=== PATIENT | female | born 1990 | race Hispanic/Latino ===

== ENCOUNTER 2018-07-18 06:00 | Inpatient (IN) | payer BC, MEDICAID ==
[2018-07-18] MEDS ORDERED: Misoprostol 200 MCG TAB PR PRN (07:04)
[2018-07-18] MEDS ORDERED: Methylergonovine 0.2 MG/ML VIAL IM PRN (07:04)
[2018-07-18] MEDS ORDERED: Diphenoxylate HCl/Atropine Tablet PO PRN ×2 (07:04)
[2018-07-18] MEDS ORDERED: Docusate 100 MG CAP PO PRN (07:04)
[2018-07-18] MEDS ORDERED: Lidocaine 1% (PF) 30 ML VIAL SC PRN (07:04)
[2018-07-18] MEDS ORDERED: HYDROcodone/Acetaminophen 5/325 mg Tablet PO PRN ×4 (07:04→17:26)
[2018-07-18] MEDS ORDERED: Butorphanol Tartrate 1 MG/ML VIAL SLOW IVP PRN (07:04)
[2018-07-18] MEDS ORDERED: Promethazine HCl 25 MG/ML VIAL IM PRN ×3 (07:04→17:26)
[2018-07-18] MEDS ORDERED: Ondansetron PF 4 MG/2 ML Vial IVP PRN ×3 (07:04→17:26)
[2018-07-18] MEDS ORDERED: Carboprost 250 MCG/ML AMP IM PRN (07:04)
[2018-07-18] MEDS ORDERED: NS w/ Oxytocin 10 units 500 ML IV SCH ×2 (07:15)
[2018-07-18 07:32] VITALS: BMI 32.8
[2018-07-18] MEDS: Lactated Ringer's 1,000 ML IV SCH ×2 (07:48→10:14)
[2018-07-18 08:15] LABS: Hemoglobin 10.3 g/dL (12.0-16.0); Mean Corpuscular HGB CONC 32.3 g/dL (32.0-36.0); Mean Corpuscular Hemoglobin 23.5 pg (27.0-31.0); Mean Corpuscular Volume 72.8 fL (78.0-98.0); Mean Platelet Volume 8.9 fL (7.4-10.4); Platelet Count 262 thou/uL (130-400); RBC Distribution Width 15.2 % (11.5-14.5); Red Blood Cell (RBC) Count 4.37 mill/uL (4.20-5.40); White Blood Cell (WBC) Count 7.1 thou/uL (4.8-10.8)
[2018-07-18 08:54] LABS: HBSAg Index 0.27 S/CO (0-0.99); Hep B Surf Ag Non-Reactive S/CO (NonReactive); Syphilis Antibody Nonreactive (Nonreactive); Syphilis Antibody Index 0.02 S/CO (<1.00 Non-Reactive)
[2018-07-18] MEDS ORDERED: Fentanyl 4 mcg/Bup 0.1% Cadd 100 ML ONE (09:37)
[2018-07-18] MEDS ORDERED: Lidocaine 1.5%/Epinephrine 1:200,000 5 ML AMPUL IJ ONE (10:19)
[2018-07-18] MEDS ORDERED: Acetaminophen 325 MG TAB PO PRN (10:52)
[2018-07-18] MEDS ORDERED: Lactated Ringer's 500 ML IV PRN (10:52)
[2018-07-18] MEDS ORDERED: Naloxone HCl 0.4 mg/ml Vial IVP PRN ×2 (10:52)
[2018-07-18] MEDS ORDERED: ePHEDrine/0.9% NaCl/PF SYRINGE 50 mg/10 ml SLOW IVP PRN (10:52)
[2018-07-18] MEDS ORDERED: diphenhydrAMINE 50 MG/ML VIAL IVP PRN (10:52)
[2018-07-18] MEDS ORDERED: Eucerin (Mineral Oil/Petrolatum,White) 30 gm Jar TOP PRN (10:52)
[2018-07-18] MEDS ORDERED: Fentanyl 4 mcg/Bupivacaine 0.1% Cassette 100 ML EPIDURAL SCH (11:00)
[2018-07-18] MEDS ORDERED: Communication Order-Pharmacy FS SCH (11:00)
[2018-07-18] MEDS: NS / Oxytocin 40 units/1000ml 1,000 ML IV PRN ×2 (14:35→16:00)
[2018-07-18] MEDS ORDERED: Zolpidem Tartrate 5 MG TAB PO PRN (17:26)
[2018-07-18] MEDS ORDERED: diphenhydrAMINE 25 MG CAP PO PRN (17:26)
[2018-07-18] MEDS ORDERED: Lanolin Ointment 7 GM TUBE TOP PRN (17:26)
[2018-07-18] MEDS ORDERED: NS / Oxytocin 40 units/1000ml 1,000 ML IV SCH (17:26)
[2018-07-18] MEDS ORDERED: Bisacodyl 10 MG SUPP PR PRN (17:26)
[2018-07-18] MEDS ORDERED: Milk Of Magnesia 30 ML UDCUP PO PRN (17:26)
[2018-07-18] MEDS: Ibuprofen 800 MG TAB PO SCH (19:59)
[2018-07-18] MEDS: Docusate Calcium (SURFAK) 240 MG CAP PO SCH (19:59)
[2018-07-19] MEDS: Ibuprofen 800 MG TAB PO SCH ×2 (05:33→14:35)
[2018-07-19] MEDS: Ferrous Sulfate 325 MG TAB PO SCH ×2 (08:00→16:44)
[2018-07-19] MEDS ORDERED: Measles/Mumps/Rubella 10 MCG/0.5 ML VIAL SC ONE (09:00)
[2018-07-19] MEDS ORDERED: Adacel (T-DAP) 0.5 ML SYRINGE IM ONE (09:00)
[2018-07-19] MEDS ORDERED: Varicella virus, LIVE 0.5 ML VIAL SC ONE (09:00)
[2018-07-19] MEDS ORDERED: Prenatal Vitamin 1 TAB PO SCH (09:00)
[2018-07-19] MEDS: Docusate Calcium (SURFAK) 240 MG CAP PO SCH (09:10)
[2018-07-19 09:13] LABS: Hemoglobin 9.6 g/dL (12.0-16.0); Mean Corpuscular HGB CONC 31.8 g/dL (32.0-36.0); Mean Corpuscular Hemoglobin 23.2 pg (27.0-31.0); Mean Corpuscular Volume 73.1 fL (78.0-98.0); Mean Platelet Volume 8.5 fL (7.4-10.4); Platelet Count 247 thou/uL (130-400); RBC Distribution Width 14.9 % (11.5-14.5); Red Blood Cell (RBC) Count 4.14 mill/uL (4.20-5.40); White Blood Cell (WBC) Count 10.1 thou/uL (4.8-10.8)
[2018-07-19] MEDS ORDERED: Bupivacaine/Epinephrine 0.25% 30 ML VIAL ONE (10:03)
[2018-07-19 16:09] VITALS: BP 128/72; TEMP 98.5
--- NOTE | 2018-07-19 16:54 | PDOC.PP ---
Post Progress Note Post Day #: 1 PO intake tolerated: yes Flatus: yes Ambulation: yes Vital Signs (12 hours) Temp Pulse Resp BP BP Pulse Ox 07/19/18 15:52 98.5 F 95 18 128/72 07/19/18 11:31 98.1 F 91 20 137/60 07/19/18 07:57 98.4 F 79 16 107/55 L 99 07/19/18 05:31 98.0 F 80 18 109/65 97 Weight Weight 174 lb - Physical Examination General: NAD Cardiovascular: no m/r/g, RRR Respiratory: clear to auscultation bilaterally Abdominal: + bowel sounds, lochia, no distention Extremities: negative homans (B) Neurological: no gross focal deficits (DC to home) Result Diagrams: 07/19/18 09:04 Additional Labs: Post Labs Blood Type A POSITIVE 07/18/18 07:53 Hep Bs Antigen Non-Reactive S/CO (NonReactive) 07/18/18 07:53
--- NOTE | 2018-07-19 16:56 | PDOC.LDHP ---
Labor and Delivery H&P Chief complaint: contractions HPI: 28 y/o at 39 weeks 0 days for term induction of labor. Current gestational age (weeks): 39 Due date: 07/25/18 Grav: 2 Para: 1 Current complications: none Abnormal US findings: No Current medications: pre-barber vitamins Allergies/Adverse Reactions: Allergies Allergy/AdvReac Type Severity Reaction Status Date / Time No Known Allergies Allergy Verified 07/18/18 06:41 - Physical Exam Vital signs reviewed and normal: yes General: NAD, resting, breathing through contractions Heart: RRR Lungs: nonlabored breathing Abdomen: NTTP Extremeties: no edema FHT: category 1 - Vaginal Exam cm dilated: 4 - Assessment L&D Assessment: elective induction at term - Plan Plan: admit to L&D, labor augmentation if indicated
== END 2018-07-19 17:41 | disposition home or self-care (01) | DRG 807 ==
LOC: L&D 06:43 → UNDOADMIN 06:43 → 3SE 17:54
PROVIDERS: ADMIT Obstetrics & Gynecology; ATTEND Obstetrics & Gynecology
PROC: 10E0XZZ Delivery of Products of Conception, External Approach (ICD-10-PCS; principal; 2018-07-18)
PROC: 10907ZC Drainage of Amniotic Fluid, Therapeutic from Products of Conception, Via Natural or Artificial Opening (ICD-10-PCS; 2018-07-18)
PROC: 3E033VJ Introduction of Other Hormone into Peripheral Vein, Percutaneous Approach (ICD-10-PCS; 2018-07-18)
PROC: 0HQ9XZZ Repair Perineum Skin, External Approach (ICD-10-PCS; 2018-07-18)
DX: O70.0 First degree perineal laceration during delivery (principal); Z37.0 Single live birth; Z3A.39 39 weeks gestation of pregnancy
CPT/HCPCS: 36415; 51702; 85027; 86780; 86850; 86900; 86901; 87340; 90715; J2001; J3490